=== PATIENT | male | born 1970 | race Two or more races ===

== ENCOUNTER 2020-11-28 12:06 | Inpatient (IN) | payer SELFPAY ==
[~2020-11-28] VITALS: Ht 160 cm; Wt 44.0 kg
--- NOTE | 2020-11-28 12:06 | NUR ---
PT KELLY [address] C/O ETOH "PASSER BY CALLED 911 HE WAS SLEEPING OUTSIDE THE SHINTO" PT IS AAOX0 UKRAINIAN SPEAKING ONLY, NOT IN RESPIRATORY DISTRESS, HOOKED TO SHERIFF SERGEANT, KEPT RESTED AND COMFORTABLE. WILL CONTINUE TO MONITOR.
--- NOTE | 2020-11-28 12:13 | NUR ---
SEEN AND EXAMINED BY .
--- NOTE | 2020-11-28 12:20 | NUR ---
ER PHLEB AT BEDSIDE FOR BLOOD DRAW
[2020-11-28 12:35] LABS: BASOPHILS # (AUTO) 0.1 /CMM (0.0-0.2); EOSINOPHILS % (AUTO) 0.5 % (0.0-6.0); HEMATOCRIT 42 % (39-51); HEMOGLOBIN 13.5 g/dL (13.5-17.5); LYMPHOCYTES # (AUTO) 1.3 /CMM (0.8-4.8); LYMPHOCYTES % (AUTO) 10.4 % (20.0-44.0); MEAN CORPUSCULAR HGB CONC 33 g/dl (31.0-36.0); MEAN CORPUSCULAR VOLUME 82 fL (80-96); MONOCYTES % (AUTO) 8.1 % (2.0-12.0); NEUTROPHILS # (AUTO) 10.3 /CMM (1.8-8.9); PLATELET COUNT (AUTO) 336 /CMM (150-450); RED BLOOD CELL COUNT(AUTO) 5.05 MIL/uL (4.5-6.0); WHITE BLOOD COUNT (AUTO) 12.8 K/uL (4.3-11.0)
[2020-11-28 12:51] LABS: CALCIUM, SERUM 8.4 mg/dL (8.5-10.1); CARBON DIOXIDE 27 mmol/L (21-32); CHLORIDE 100 mmol/L (98-107); CREATININE 0.8 mg/dL (0.6-1.3); GLUCOSE 123 mg/dL (74-106); POTASSIUM 3.9 mmol/L (3.5-5.1); SODIUM SERUM 135 mmol/L (136-145); UREA NITROGEN, BLOOD 18 mg/dL (7-18)
[2020-11-28 12:58] LABS: BILIRUBIN,TOTAL 1.6 mg/dL (0.2-1.0)
[2020-11-28 12:59] LABS: ACETAMINOPHEN < 0 ug/ml (10-30); ALANINE AMINOTRANSFERASE 45 U/L (12-78); ALBUMIN 2.2 g/dL (3.4-5.0); ALCOHOL, BLOOD < 3 mg/dL (0-0); ALKALINE PHOSPHATASE 316 U/L (46-116); ASPARTATE AMINOTRANSFERASE 49 U/L (15-37); BILIRUBIN,DIRECT 0.9 mg/dL (0.0-0.2); TOTAL PROTEIN, SERUM 6.8 g/dL (6.4-8.2)
--- NOTE | 2020-11-28 13:10 | NUR ---
PT IS WHEELED TO CT SCAN VIA [facility].
[2020-11-28] MEDS ORDERED: ASPIRIN 300 MG/SUPP.RECT RC ONE ×2 (13:46→14:00)
--- NOTE | 2020-11-28 14:09 | NUR ---
epic software verification engineer paged
[2020-11-28] MEDS ORDERED: DILTIAZEM HCL 25 MG IV ONE ×3 (14:17→23:00)
[2020-11-28] MEDS ORDERED: DILTIAZEM HCL 50 MG IV IV ONE ×2 (14:30→16:30)
[2020-11-28] MEDS ORDERED: DEXTROSE 50%-WATER 50 ML DISP.SYRIN IV PRN (14:30)
[2020-11-28] MEDS ORDERED: ONDANSETRON HCL/PF 4 MG/2 ML VIAL IVP PRN (14:30)
--- NOTE | 2020-11-28 14:39 | NUR ---
COVID SPECIMEN OBTAINED AND SENT TO LAB.
--- NOTE | 2020-11-28 14:44 | NUR ---
[place] note: financial services assistant received request for consult for homelessness and ETOH use. Patient is a 50-year-old, male. SW attempted to interview the patient at his bedside on the emergency department, but patient was lethargic and unable to provide SW will information. Charge nurse, Zachery notified MIRI that the patient will be admitted medically. MIRI will coordinate with nursing to follow up with patient at a later time.
[2020-11-28 14:46] LABS: BILIRUBIN,URINE SMALL (NEGATIVE); COLOR,URINE DARK YELLOW (YELLOW); LEUKOCYTE ESTERASE ,URINE Negative (NEGATIVE); NITRITE, URINE Negative (NEGATIVE); PH,URINE 5.5 (5.0-8.0); PROTEIN,URINE 30 mg/dl (NEGATIVE); UGLUCOSE Negative (NEGATIVE)
[2020-11-28 14:50] LABS: WBC,URINE 0-2 /HPF (0-3)
[2020-11-28 14:51] LABS: BACTERIA,URINE Few /HPF (None Seen); MUCUS,URINE Moderate /LPF (None Seen); SQUAMOUS EPITHELIAL CELL,UR Few /HPF (None Seen)
[2020-11-28] MEDS ORDERED: DILTIAZEM HCL 25 MG IV IV ONE (15:00)
--- NOTE | 2020-11-28 16:14 | NUR ---
BARBIE SÁNCHEZ MADE AWARE RE: HR STILL ON 130-140'S. WITH N.O. TO GIVE CARDIZEM 10MG X1 NOW. NOTED AND CARRIED OUT. WILL CONT. TO MONITOR.
--- NOTE | 2020-11-28 16:25 | NUR ---
LOCKER ROOM CLERK AT BEDSIDE FOR 2D ECHO AND CAROTID JAUN.
--- NOTE | 2020-11-28 17:02 | NUR ---
GOT BED 104
--- NOTE | 2020-11-28 17:08 | NUR ---
REPORT GIVEN TO ALYSSIA CALDWELL FOR JACKY.
[2020-11-28] MEDS: BLOOD SUGAR DIAGNOSTIC 1 EACH STRIP IN SCH (18:00)
--- NOTE | 2020-11-28 19:45 | NUR ---
RN OPENING NOTE RECD REPORT FROM SHAHID CADE, RECD PT IN BED. A/O XO. PT IS LETHARGIC, RESPONDS TO PAIN AND WITHDRAWS UNABLE TO FOLLOW COMMANDS. PT ON ROOM AIR, NO SOB NO RESP DISTRESS. PT IV SITE FLUSHED ASEPTICALLY. ON TELE MONITORING PT PRESENTS WITH AFIB HR IN THE 130-140S, DAY SHIFT RN INFORMED HOSPITALIST WAITING FOR REPLY, IF NONE WILL FOLLOW UP WITH OPERATOR HELPER. SAFETY MEASURES IN PLACE HOB ELEVATED. SIDE RAILS UP X2, BED LOCKED IN LOWEST POSITION BED ALARM ON. WILL CONT TO MONITOR.
--- NOTE | 2020-11-28 19:53 | NUR ---
REPORT RECEIVED FROM PAULETTE. PATIENT FOUND IN ROOM RESTING IN RIGHT LATERAL POSITION. VITAL SIGNS TAKEN. MD NOTIFIED OF UNCONTROLLED A-FIB 120-140. SAFETY PRECAUTIONS IMPLEMENTED, BED LOCKED IN LOWEST POSITION, SIDE RAILS UP X2, CALL LIGHT WITHIN REACH. WILL ENDORSE CARE TO UPCOMING SHIFT.
--- NOTE | 2020-11-28 19:58 | NUR ---
UNABLE TO PERFORM STROKE ASSESSMENT. PATIENT DOES NOT FOLLOW COMMANDS BUT WAS AROUSED TO VERBAL AND PAINFUL STIMULI.
[2020-11-28 20:00] VITALS: BP_SYST 129; BP_SYST 140; BP_DIAS 81; BP_DIAS 83
--- NOTE | 2020-11-28 20:30 | NUR ---
RN NOTE UNABLE TO GAIN INFORMATION/GET ACCURATE ASSESSMENTS DUE TO PT BEING UNRESPONSIVE UNABLE TO FOLLOW COMMANDS. YET PT TURNS AND REPOSITIONS SELF OCCASIONALLY.
--- NOTE | 2020-11-28 20:42 | NUR ---
RN NOTE NOTIFIED CAN CUTTER CAROL GONZALES NP REGARDING PT AFIB HR IN 130S ORDERS FOR CARDIZEM 5MG IVP ONCE NOW AND START CARDIZEM DRIP 5MG. WILL CARRY OUT.
[2020-11-28] MEDS ORDERED: DILTIAZEM HCL 25 MG IV IVP ONE (21:00)
[2020-11-28] MEDS ORDERED: DILTIAZEM HCL 25 MG IV INJ ONE (21:00)
[2020-11-28] MEDS ORDERED: DILTIAZEM HCL IV 125 MG in IV NS 0.9% 100 ML IV PRN (21:30)
[2020-11-28] MEDS ORDERED: SIMVASTATIN 40 MG TABLET PO SCH (22:00)
[2020-11-28 23:00] VITALS: BP 147/94
[2020-11-28] MEDS ORDERED: DILTIAZEM HCL 50 MG IV ONE (23:02)
[2020-11-29] VITALS (10 sets, daily range): BP systolic 103–141; BP diastolic 65–94
[2020-11-29] MEDS: BLOOD SUGAR DIAGNOSTIC 1 EACH STRIP IN SCH ×4 (00:27→17:20)
--- NOTE | 2020-11-29 00:42 | NUR ---
RN NOTE PT CURRENTLY ON CARDIZEM DRIP, 5MG/HR ORDERED. HEART RATE CURRENTLY 110 NO TITRATION. DOCUMENTING VITAL SIGNS Q1H PER NURSING ECONOMIC ADVISER. INFORMED TAPE RECORDER MECHANIC.
--- NOTE | 2020-11-29 05:42 | NUR ---
RN NOTE DURING PT HYGIENE, PT SEEMS MORE ALERT TOWARDS END OF SHIFT, PT IS ABLE TO FOLLOW COMMANDS SUCH TURNING WHEN ASKED, BUT DOES NOT HOLD ATTENTION, DRIFTS BACK TO SLEEP
[2020-11-29 06:39] LABS: BASOPHILS # (AUTO) 0.1 /CMM (0.0-0.2); BASOPHILS % (AUTO) 0.5 % (0.0-2.0); EOSINOPHILS % (AUTO) 0.1 % (0.0-6.0); HEMATOCRIT 41 % (39-51); HEMOGLOBIN 13.3 g/dL (13.5-17.5); LYMPHOCYTES # (AUTO) 1.4 /CMM (0.8-4.8); MEAN CORPUSCULAR HGB CONC 33 g/dl (31.0-36.0); MEAN CORPUSCULAR VOLUME 82 fL (80-96); MONOCYTES # (AUTO) 1.1 /CMM (0.1-1.30); MONOCYTES % (AUTO) 6.4 % (2.0-12.0); NEUTROPHILS # (AUTO) 14.9 /CMM (1.8-8.9); PLATELET COUNT (AUTO) 372 /CMM (150-450); WHITE BLOOD COUNT (AUTO) 17.5 K/uL (4.3-11.0)
--- NOTE | 2020-11-29 06:44 | NUR ---
RN CLOSING NOTE IMPROVEMENT FAR PT BEING MORE ALERT AT TIMES, BUT NO SIGNIFICANT CHANGE. STILL ON ROOM AIR. NO RESP DISTRESS OR SOB NOTED. PT STILL REMAINS WITH CARDIZEM DRIP 5MG/HR. STILL AFIB, HR 110-120S. SAFETY MEASURES IN PLACE. HOB ELEVATED. SIDE RAILS UP X3, BED LOCKED IN LOWEST POSITION WITH ALARM ON. WILL CONT TO MONITOR UNTIL END OF SHIFT, WILL ENDORSE TO DAY SHIFT FOR CONTINUATION OF CARE
[2020-11-29 07:08] LABS: ALANINE AMINOTRANSFERASE 49 U/L (12-78); ALBUMIN 2.1 g/dL (3.4-5.0); ALKALINE PHOSPHATASE 291 U/L (46-116); ASPARTATE AMINOTRANSFERASE 45 U/L (15-37); BILIRUBIN,TOTAL 1.8 mg/dL (0.2-1.0); CALCIUM, SERUM 8.3 mg/dL (8.5-10.1); CARBON DIOXIDE 24 mmol/L (21-32); CHLORIDE 103 mmol/L (98-107); CREATININE 0.7 mg/dL (0.6-1.3); GLUCOSE 105 mg/dL (74-106); MAGNESIUM 1.5 mg/dL (1.8-2.4); PHOSPHORUS 2.8 mg/dL (2.5-4.9); SODIUM SERUM 137 mmol/L (136-145); TOTAL PROTEIN, SERUM 6.7 g/dL (6.4-8.2); UREA NITROGEN, BLOOD 22 mg/dL (7-18)
[2020-11-29 07:15] LABS: CHOLESTEROL 69 mg/dL (<200); HDL CHOLESTEROL 21 mg/dL (40-60); LDL 45 mg/dL (0-99); TRIGLYCERIDES 66 mg/dL (30-150)
--- NOTE | 2020-11-29 08:04 | NUR ---
VELVET RN NOTE PATIENT IN BED, STILL SLEEPING BUT VERY SLOWLY AROUSABLE RO TACTILE AND VERBAL STIMULI, PATIENT ABLE TO ELEVATE BOTH HANDS ASKED , STILL NONVERBAL , UNABLE TO MOVE BOTH LOWER EXTREMITIES, , ON TELE MONITOR AFIB\AFLUTTER,, HER 120, ON NPO STATUS AT THIS TIME, , ON CARDIZEM DRIP ORDERED ,LAC HL INTACT AND FLUSHED WELL ,REPORTED TO DR SINGH THAT KINGSLEY STILL ON CARDIZEM DRIP, BED IN LOWEST AND LOCKED POSITION , SAFETY MEASURE PROVIDED , CALL LIGHT WITHIN REACH , WILL MONITOR
[2020-11-29 08:15] LABS: THYROID STIMULATING HORMONE < 0.007 uIU/mL (0.358-3.74)
[2020-11-29] MEDS: Magnesium 1GM/D5W 100ML PREMIX 100 ML IV SCH ×2 (08:35→09:40)
[2020-11-29] MEDS: PANTOPRAZOLE 40 MG VIAL IV SCH (08:35)
[2020-11-29] MEDS ORDERED: ASPIRIN 300 MG/SUPP.RECT RC ONE (09:00)
--- NOTE | 2020-11-29 10:12 | NUR ---
HIGH SCHOOL DRAFTING TEACHER NOTE ST AT BEDSIDE ,PASS SWALLOW EVAL OK TO START PUREE DIET, ALSO OT AT BEDSIDE, OT EVAL DONE, CONSENT FOR CT ANGIO OBTAINED BY 2 NURSES ,OK PER DR GRADY , PER DR SINGH OK TO STOP CARDIZEM DRIP AND START CARDIZEM POM 240 MG , WILL F\U
[2020-11-29] MEDS: DILTIAZEM HCL CD 240 MG PO SCH (10:47)
[2020-11-29] MEDS: APIXABAN 5 MG TABLET PO SCH ×2 (11:27→16:15)
--- NOTE | 2020-11-29 11:49 | NUR ---
LOFT WORKER APPRENTICE NOTE ABLE TO HAVE PT ,AND SIT AT EDGE OF BED WITH ASSISTANCE
--- NOTE | 2020-11-29 11:55 | NUR ---
ATTENDANCE SECRETARY NOTE CT ANGIOGRAM DONE ORDERED
[2020-11-29] MEDS: DIGOXIN INJ 0.5 MG/2 ML AMPUL IV SCH ×3 (12:04→23:53)
[2020-11-29] MEDS: INSULIN REGULAR, HUMAN 100 UNIT/ML 3 ML VIAL SQ PRN ×2 (12:11→17:12)
--- NOTE | 2020-11-29 14:24 | NUR ---
INBOUND CUSTOMER SERVICE AGENT NOTE REPORTED TO DR FLORES NEUROLOGIST CTA ANGIOGRAM RESULT , STATED THAT WILL COME SOON NO NEW ORDER GIVEN AT THIS TIME WILL F\U
--- NOTE | 2020-11-29 14:44 | NUR ---
STEAMTABLE WORKER NOTES DR. GONZALEZ NOTIFIED THAT WBC IS 20.7, PATIENT ON ROCEPHIN, PLATELETS 36, HOLD ASPIRIN, TROPONIN 3.492, CHANGE DIET TO PUREE SINCE PATIENT HAS A DIFFICULTY TO SWALLOW, BP 94/45, METOPROLOL WAS HELD. BUN IS 60, CREATININE 2.1. PATIENT HAS LOW URINE OUTPUT 100CC. PER FAMILY, WANTS TO DO CT HEAD DUE TO PATIENT IS CONFUSED. STATED THAT WILL ALL OF THE ABOVE WILL CHECK IT OUT.
--- NOTE | 2020-11-29 16:00 | NUR ---
SS consult for homelessness & rule out stroke has been received. SW will follow up at a later time.
--- NOTE | 2020-11-29 17:29 | NUR ---
LIVESTOCK RANCH HAND NOTE NEUROLOGIST AT BEDSIDE , PATIENT DONE CONDITION UPDATED , NO NEW ORDER GIVEN AT THIS TIME ,WILL CONT TO MONITOR Addendum: 11/29/20 at 1824 by JERRY GARDUNO RN REFUSED TO PLACE DVT PUMPS ,EXPLAINED OF IMPORTANCE BUT STILL REFUSING WILL CONT TO MONITOR
--- NOTE | 2020-11-29 18:24 | NUR ---
RAWHIDE BONE ROLLER NOTE PATIENT IN BED ,ASSISTED WITH DINNER, ALL NEEDS ATTENDED, ON RA NO SOB NOTED , ON TELE MONITOR AFIB HR 114 , BED IN LOWEST AND LOCKED POSITION , WITH DORANTES CATH TO GRAVITY WITH JULISA COLOR URINE , WILL CONT TO MONITOR CLOSELY
--- NOTE | 2020-11-29 19:40 | NUR ---
CARBON ROD INSERTER NOTE PATIENT IN BED, ASLEEP, WITH SEMI OPEN EYES, NONVERBAL, AROUSES TO VERBAL STIMULI, UNABLE TO FOLLOW COMMANDS, AFIB ON TELE MONITOR AFIB\AFLUTTER, WITH HR 90S AT THIS TIME, LAC HL PATENT AND INTACT, BED IN LOCKED AND LOWEST POSITION , ALL SAFETY MEASURE PROVIDED, ON ASPIRATION PRECAUTIONS, CALL LIGHT WITHIN REACH , WILL CONTINUE TO MONITOR CLOSELY.
[2020-11-30] VITALS: BP 150/89
[2020-11-30] MEDS: BLOOD SUGAR DIAGNOSTIC 1 EACH STRIP IN SCH ×4 (00:04→18:03)
[2020-11-30] MEDS: INSULIN REGULAR, HUMAN 100 UNIT/ML 3 ML VIAL SQ PRN ×4 (00:10→18:04)
[2020-11-30 04:00] VITALS: BP 144/79
--- NOTE | 2020-11-30 07:01 | NUR ---
RN CLOSING NOTE, PATIENT ASLEEP, ON ROOM AIR, NECROLOGICAL [place] NO CHANGE DURING THE NIGHT, NO RESP DISTRESS OR SOB NOTED, NO CHANGE IN CONDITION, CONT NEURO CHECKS ORDERED, SAFETY MEASURES IN PLACE. ASPIRATION PRECAUTIONS, HOB ELEVATED. SIDE RAILS UP X3, BED LOCKED IN LOWEST POSITION WITH ALARM ON, WILL ENDORSE CONTINUITY OF CARE TO ONCOMING NURSE.
--- NOTE | 2020-11-30 07:10 | NUR ---
RN OPENING NOTES RECEIVED PT IN BED. AWAKE, NONVERBAL. UNABLE TO FOLLOW COMMANDS. STABLE ON ROOM AIR, O2 SAT @97%. AFIB ON TELE MONITOR WITH HR AT 90s. IV ACCESS AT L AC #18 INTACT, PATENT AND FLUSHED. DORANTES CATH ION PLACE DRAINING YELLOWISH COLORED URINE. ON PUREED DIET. ON ASPIRATION PRECAUTIONS. SAFETY MEASURES IN PLACE. CALL LIGHT WITHIN REACH. BED LOCKED AND IN LOWEST POSITION WITH SIDE RAILS UP X3. WILL CONTINUE TO MONITOR.
[2020-11-30 08:00] VITALS: BP 157/90
[2020-11-30] MEDS ORDERED: ASPIRIN 81 MG TAB.CHEW PO SCH (09:00)
[2020-11-30] MEDS: DILTIAZEM HCL CD 240 MG PO SCH (09:15)
[2020-11-30] MEDS: APIXABAN 5 MG TABLET PO SCH ×2 (09:17→17:56)
[2020-11-30] MEDS: PANTOPRAZOLE 40 MG VIAL IV SCH (09:18)
[2020-11-30 10:22] LABS: THYROID STIMULATING HORMONE < 0.007 uIU/mL (0.358-3.74)
[2020-11-30 12:00] VITALS: BP 145/86
--- NOTE | 2020-11-30 12:19 | NUR ---
RN NOTES BS OF 130, NO INSULIN COVERAGE.
--- NOTE | 2020-11-30 14:51 | NUR ---
Mold Engraver note: community services manager consult request received for homelessness and possible stroke. SW was unable to arouse the patient. SS will follow up with the patient at a later time.
[2020-11-30 16:00] VITALS: BP 147/90
--- NOTE | 2020-11-30 19:30 | NUR ---
RN OPENING NOTES: RECEIVED PT A/OX0;NON-VERBAL BUT FOLLOWS COMMANDS; PT IN BED RESTING COMFORTABLY. PATIENT IN NO S/SX OF ACUTE DISTRESS AT THIS TIME. NO SOB NOTED. PATIENT'S BREATHING IS EVEN AND UNLABORED. PATIENT IS ON ROOM AIR ; TOLERATING WELL WITH 02 SAT @99% AT THE TIME OF RECEIVED. PATIENT ON TELE MONITORING;HR IS @90 AT THE TIME OF RECEIVED. PATIENT ON CARDIAC DIET; TOLERATES WELL. NOTED IV SITE ON L AC #18 AND R FA #22; PATENT, INTACT AND FLUSHING WELL; NO S/S OF INFECTION OR INFILTRATION. DORANTES CATH IN PLACE, MODERATE URINE OUTPUT NOTED. PATIENT WITH VT PUMP ON. SAFETY MEASURES HAVE BEEN PROVIDED AND IMPLEMENTED. PATIENT BED ALARM IS ON. HEAD OF BED ELEVATED. BED IS LOCKED, IN LOWEST POSITION AND SIDE RAILS UP. CALL LIGHT WITHIN REACH OF THE PATIENT. APPLICABLE ISOLATION PRECAUTIONS IN PLACE. WILL CONTINUE TO MONITOR AND REASSESS FOR ANY CHANGES AND WILL CARRY OUT ANY ONGOING AND ACTIVE MD ORDER.
--- NOTE | 2020-11-30 19:36 | NUR ---
RN CLOSING NOTES NO SIGNIFICANT CHANGES DURING THE SHIFT. STABLE ON ROOM AIR. NO SOB OR ANY S/S RESPIRATORY DISTRESS. NEURO CHECKS DONE ORDERED. ASPIRATION PRECAUTIONS. HOB ELEVATED. SAFETY MEASURES STILL IN PLACE. WILL ENDORSE TO NIGHT RN FOR JACKY.
[2020-11-30 20:00] VITALS: BP 143/84
--- NOTE | 2020-11-30 23:00 | NUR ---
RN NOTES NO CHANGE IN PATIENT CONDITION AT THIS TIME PATIENT VITALS STABLE, NO SIGNS OF ACUTE RESPIRATORY DISTRESS. ENGINEERING DESIGN MANAGER MADE AWARE. WILL CONTINUE TO MONITOR AND REASSESS FOR ANY CHANGES THROUGHOUT THE SHIFT.
[2020-12-01] VITALS: BP 136/83
[2020-12-01] MEDS: BLOOD SUGAR DIAGNOSTIC 1 EACH STRIP IN SCH ×4 (00:01→17:19)
[2020-12-01] MEDS: INSULIN REGULAR, HUMAN 100 UNIT/ML 3 ML VIAL SQ PRN ×4 (00:04→18:18)
--- NOTE | 2020-12-01 03:00 | NUR ---
RN NOTES PATIENT REMAINS IN NO ACUTE RESPIRATORY DISTRESS AT THIS TIME, NO CHANGES TO CONDITION/STATUS. AM PATIENT CARE DONE. FLIGHT OPERATIONS MANAGER WELL AWARE. WILL CONTINUE TO MONITOR AND REASSESS FOR ANY CHANGES THROUGHOUT THE SHIFT
[2020-12-01 04:00] VITALS: BP 113/80
[2020-12-01 06:09] LABS: BASOPHILS # (AUTO) 0.1 /CMM (0.0-0.2); BASOPHILS % (AUTO) 0.4 % (0.0-2.0); EOSINOPHILS % (AUTO) 0.8 % (0.0-6.0); HEMATOCRIT 39 % (39-51); HEMOGLOBIN 12.9 g/dL (13.5-17.5); LYMPHOCYTES # (AUTO) 1.7 /CMM (0.8-4.8); LYMPHOCYTES % (AUTO) 9.2 % (20.0-44.0); MEAN CORPUSCULAR HGB CONC 33 g/dl (31.0-36.0); MEAN CORPUSCULAR VOLUME 81 fL (80-96); MONOCYTES # (AUTO) 1.5 /CMM (0.1-1.30); MONOCYTES % (AUTO) 8.1 % (2.0-12.0); NEUTROPHILS # (AUTO) 15.4 /CMM (1.8-8.9); NEUTROPHILS % (AUTO) 81.5 % (43.0-81.0); PLATELET COUNT (AUTO) 349 /CMM (150-450); RED BLOOD CELL COUNT(AUTO) 4.84 MIL/uL (4.5-6.0); WHITE BLOOD COUNT (AUTO) 18.9 K/uL (4.3-11.0)
[2020-12-01 06:21] LABS: CALCIUM, SERUM 8.1 mg/dL (8.5-10.1); CREATININE 0.6 mg/dL (0.6-1.3); MAGNESIUM 1.6 mg/dL (1.8-2.4); PHOSPHORUS 3.2 mg/dL (2.5-4.9); POTASSIUM 3.9 mmol/L (3.5-5.1)
--- NOTE | 2020-12-01 07:10 | NUR ---
RN CLOSING NOTE: PATIENT REMAINS IN ROOM IN NO SIGNS OF RESPIRATORY DISTRESS, PATIENT STILL ON ROOM AIR;TOLERATING WELL SATURATING @ >95% SP02. SAFETY MEASURES IMPLEMENTED, BED IN LOWEST POSITION, LOCKED, SIDE RAILS UP, CALL LIGHT WITHIN REACH. ALL NEEDS AND ORDERS ADDRESSED DURING THE SHIFT. IV ACCESS MAINTAINED INTACT, SECURED AND FLUSHING WELL. ALL DUE MEDS GIVEN ORDERED & SCHEDULED ; PATIENT TOLERATED WELL. PATIENT KEPT CLEAN AND COMFORTABLE WITHIN THE SHIFT. PATIENT ENDORSED TO INCOMING SHIFT RN WITH STABLE VITAL SIGN AND FOR CONTINUITY OF CARE.
--- NOTE | 2020-12-01 07:15 | NUR ---
RN OPENING NOTE PATIENT RECEIVED IN ROOM RESTING IN HIGH FOWLERS POSITION. PATIENT IN NO SIGNS OF RESPIRATORY DISTRESS, PATIENT STILL ON ROOM AIR TOLERATING WELL. SAFETY MEASURES IMPLEMENTED, BED LOCKED IN LOWEST POSITION, SIDE RAILS UP X2, CALL LIGHT WITHIN REACH. IV ACCESS MAINTAINED INTACT, SECURED AND FLUSHING WELL. WILL CONTINUE TO MONITOR AND PROVIDE CARE THROUGHOUT SHIFT.
[2020-12-01 08:00] VITALS: BP 133/82
[2020-12-01] MEDS ORDERED: Magnesium 1GM/D5W 100ML PREMIX 100 ML IV SCH (08:00)
[2020-12-01] MEDS: DILTIAZEM HCL CD 240 MG PO SCH (09:08)
[2020-12-01] MEDS: PANTOPRAZOLE 40 MG/PACK PACK PO SCH (09:09)
[2020-12-01] MEDS: APIXABAN 5 MG TABLET PO SCH ×2 (09:10→17:19)
[2020-12-01] MEDS ORDERED: DILT240C88 PO (09:39)
[2020-12-01] MEDS ORDERED: APIX5TAB PO (09:39)
[2020-12-01 12:00] VITALS: BP 139/88
--- NOTE | 2020-12-01 15:06 | NUR ---
"SS consult: SS Consult for homelessness & rule out stroke requested. The pt. is a 50 year old male of unknown race or ethnicity. SW met with pt. bedside. The pt. looks disheveled is lethargic and unable to keep eyes open. Pt. noted moving fingers as to wave at SW. However, pt. unable to nod, mouth or verbalize any responses to questions. SW will follow up at a later time when pt. is more alert. MIRI discussed this with VELVET charge nurse & family caseworker, Olga as pt. will possibly require placement. Addendum: 12/02/20 at 1119 by MARIE CHERY SW placed the homeless waiver and the homeless resources in the pt.'s chart and informed charge nurse, Ilya. Substance Abuse resources provided included: [facility] Substance Abuse Self-Helpline ([facility]) ; CRI -HELP [address] [facility] [place] [id number] ; [facility] [address] [facility] [address] ; [facility] Rehabilitation Program [address] [facility] [address] ; [facility] [address] [facility] [address] ; [facility] 0243 [facility] [address] ; [facility] 909 [facility] [phone] ; [facility] Substance Abuse Helpline([facility] ; [facility] ; [facility] [place]; [facility] [place]; Cri-Help [place]; [facility] [place]; [place] [facility]; [facility] [place]; [facility] [place]; [facility] Heydi [place]; Alcoholics Anonymous -SFV; Ke-Yovn-Lqbhsbb ; Marijuana Anonymous -SFV; Narcotics Anonymous www.na.org; Year-round shelters: [facility] [place] [address] [place], [place] [address] ; [facility] [place] [address] [place] [address]; [place] [facility] Jsabggy9585 [facility] [address] Winter Shelters: Rhett [place] Provider: [facility] [place] Address: [address] [facility] [place], [address] # of Beds: 47 Population Served: [facility] 6 | [facility] Oralia Sarabia Ana Laura Provider: [facility] Address: [address], [address] # of Beds: 66 Population Served: Yuliya VUELOGIC [place] Provider: First to Serve Address: [address] [facility], [address] # of Beds: 56 Population Served: Yuliya Du Provider: [facility] Address: [address] [facility], [address] # of Beds: 49 Population Served: Coed SPA 8 | [place] Provider: First to Serve Address: [address] [facility]. [place], [address] # of Beds: 37 Population Served: Coed Hygiene: [facility]: [address] [place] ; [facility] [address] [facility]adventist health tulare ; [facility] [address] [place] . Food Resources: [place] [facility] at [facility]- [address] [place]; Meet Each Need with Dignity ([facility]) [address] [facility] [place]; [facility] Food Pant[facility] 8262 [facility]; [facility] [address] 8322 [facility]. Mental Health resources provided: [facility] [address] [place], [place] [phone] ; [facility] [address] [facility] [address], [place], [place] [phone] ; [facility] [address], [place] [phone] ; [facility] [address] [place], [place] [address] Healthcare Clinics: [facility] [address] [facility], [address] [place]. [place] ; [facility] [address] [facility] [address] [place] [address]; [facility] Health Jeremiah [address] [facility] [address] [phone]) [phone] Counseling--Outpatient [facility] [place] [address] [facility], [facility] [place], [place] [phone] (Specializes in in-depth psychotherapy for emotional distress: anxiety, depression, interpersonal conflicts, life transitions, childhood abuse) [place] [id number] [place] [address] (Assist with solving problem marital difficulties, separation & divorce, aging parents, & grief, chronic & terminal illness) [facility] [address] [place], [place] [address] (Deal with loss & grief, anxiety, marital difficulties) Homebound/Mental Health Services [address] [facility] [address] [place], [place] [address] (Provide in-home mental services to people who are incapable of leaving their homes) Organization for Needs of the Elderly Senior Service/Resource Center [address] [place] [address] [facility] [address] [place], [place] [phone] PSYCHIATRIC OUTPATIENT SERVICES [facility] Partial Hospitalization and Intensive Outpatient Program (Managed Care and [place] Only)[address] [address] [place]. [facility] [phone] [facility] Partial Hospitalization and Outpatient [id number] [place] [address] [place], [place] [phone] [facility] Partial Hospitalization and Outpatient [id number]in[address]. [place], [place] [phone] [facility] [id number] [place], [place] [phone] [facility] Salvador Pandey Partial Hospitalization and Outpatient [id number] Emelita [facility] Salvador PandeyGRAY [place], [phone] "
[2020-12-01 16:00] VITALS: BP 148/100
--- NOTE | 2020-12-01 19:02 | NUR ---
RN CLOSING NOTE PATIENT IN ROOM RESTING IN HIGH FOWLERS POSITION. PATIENT IN NO SIGNS OF RESPIRATORY DISTRESS, PATIENT STILL ON ROOM AIR TOLERATING WELL. SAFETY MEASURES IMPLEMENTED, BED LOCKED IN LOWEST POSITION, SIDE RAILS UP X2, CALL LIGHT WITHIN REACH. IV ACCESS MAINTAINED INTACT, SECURED AND FLUSHING WELL. WILL ENDORSE CARE TO UPCOMING SHIFT.
[2020-12-01 20:00] VITALS: BP 142/92
[2020-12-02] MEDS: INSULIN REGULAR, HUMAN 100 UNIT/ML 3 ML VIAL SQ PRN ×3 (01:19→12:40)
[2020-12-02] MEDS: BLOOD SUGAR DIAGNOSTIC 1 EACH STRIP IN SCH ×3 (01:22→12:27)
[2020-12-02 04:00] VITALS: BP 140/95
--- NOTE | 2020-12-02 05:45 | NUR ---
RN notes Resting comfortably in bed, alert and awake, non verbal, non ambulatory with eye tracking noted. Obeys commands. No sign or symptom of distress. Breathing even and unlabored. Room air well tolerated.No physical manifestation of pain or discomfort. No significant change of condition. For DC if placement is identified. Kept clean and dry. Will endorse to next shift for continuity of care.
[2020-12-02 08:02] LABS: BASOPHILS # (AUTO) 0.1 /CMM (0.0-0.2); BASOPHILS % (AUTO) 0.6 % (0.0-2.0); EOSINOPHILS % (AUTO) 1.1 % (0.0-6.0); HEMATOCRIT 43 % (39-51); LYMPHOCYTES # (AUTO) 1.9 /CMM (0.8-4.8); LYMPHOCYTES % (AUTO) 10.6 % (20.0-44.0); MEAN CORPUSCULAR HGB CONC 33 g/dl (31.0-36.0); MEAN CORPUSCULAR VOLUME 81 fL (80-96); MONOCYTES # (AUTO) 1.5 /CMM (0.1-1.30); MONOCYTES % (AUTO) 8.8 % (2.0-12.0); NEUTROPHILS # (AUTO) 13.8 /CMM (1.8-8.9); NEUTROPHILS % (AUTO) 78.9 % (43.0-81.0); PLATELET COUNT (AUTO) 365 /CMM (150-450); RED BLOOD CELL COUNT(AUTO) 5.27 MIL/uL (4.5-6.0); WHITE BLOOD COUNT (AUTO) 17.4 K/uL (4.3-11.0)
[2020-12-02 08:14] LABS: CREATININE 0.6 mg/dL (0.6-1.3); MAGNESIUM 1.4 mg/dL (1.8-2.4); PHOSPHORUS 3.1 mg/dL (2.5-4.9); POTASSIUM 3.8 mmol/L (3.5-5.1)
[2020-12-02] MEDS: PANTOPRAZOLE 40 MG/PACK PACK PO SCH (08:24)
[2020-12-02] MEDS: DILTIAZEM HCL CD 240 MG PO SCH (08:25)
[2020-12-02] MEDS: APIXABAN 5 MG TABLET PO SCH (08:26)
--- NOTE | 2020-12-02 11:31 | NUR ---
Billiard Table Repairer note: SW attempted to provide patient with homeless resources and waiver. ALYSSIA Hammond stated that patient is still lethargic. MIRI Lan placed homeless resources and waiver in the patient's chart on 12/01/20 and notified charge nurse, Soon. No further SS intervention at this time, however, SW will remain available as needed.
[2020-12-02 12:00] VITALS: BP 139/98
[2020-12-02] MEDS ORDERED: MAGNESIUM OXIDE 400 MG TABLET PO ONE ×2 (12:21→12:30)
[2020-12-02] MEDS ORDERED: Magnesium 1GM/D5W 100ML PREMIX 100 ML IV SCH (12:30)
--- NOTE | 2020-12-02 13:40 | NUR ---
MS CARDIAC SPECIALIST NOTE PATIENT DISCHARGED VIA AMBULANCE @ 1325. PATIENT STABLE, ALERT, AWARE OF SURROUNDINGS, NON VERBAL. SKIN INTACT. ON ROOM AIR - TOLERATING WELL. NO SOB NOTED. PATIENT KEPT CLEAN AND DRY, DORANTES EMPTIED BEFORE PICKUP. PATIENT GIVEN ALL EXITCARE INSTRUCTIONS AND EDUCATION. NODDED FOR UNDERSTANDING. IV ACCESS TO BOTH ARMS REMOVED. WRISTBAND REMOVED. PATIENT TAKEN BY ANN ACCOMPANIED BY 2 EMT'S.
== END 2020-12-02 13:23 | DRG 64 ==
LOC: ER 12:08 → TELE1 17:53 → TELE-TD 20:24 → TELE1 11-29 09:55 → MEDSG1 12-01 17:41
PROVIDERS: ADMIT Registered Nurse; ATTEND Internal Medicine
DX: I63.9 Cerebral infarction, unspecified (principal); I21.A1 Myocardial infarction type 2; G93.41 Metabolic encephalopathy; J69.0 Pneumonitis due to inhalation of food and vomit; N39.0 Urinary tract infection, site not specified; I42.0 Dilated cardiomyopathy; I48.91 Unspecified atrial fibrillation; Z59.0 Homelessness; Z86.73 Personal history of transient ischemic attack (TIA), and cerebral infarction without residual deficits; Z20.822 Contact with and (suspected) exposure to COVID-19; R29.711 NIHSS score 11; R74.01 Elevation of levels of liver transaminase levels; F10.10 Alcohol abuse, uncomplicated; Y90.0 Blood alcohol level of less than 20 mg/100 ml; Z79.899 Other long term (current) drug therapy; E83.42 Hypomagnesemia; R79.89 Other specified abnormal findings of blood chemistry; R59.0 Localized enlarged lymph nodes; D72.829 Elevated white blood cell count, unspecified
CPT/HCPCS: 36415; 70450-TC; 70496-TC; 70498-TC; 71045-TC; 80048-TC; 80053-TC; 80061-TC; 80076-TC; 81001; 82140-TC; 82962-TC; 83735-TC; 84100-TC; 84439-TC; 84443-TC; 84484-TC; 85025-TC; 87081-TC; 92507-TC; 92521; 92526; 92611-TC; 93307-TC; 93880-TC; 97110-TC; 97116-TC; 97530-TC; C9113; C9803; G0378; G0480; J1160; J1815; J3475; J3490; J7030; J7040; J7050; U0003